=== PATIENT | female | born 1950 | race Caucasian/White ===

== ENCOUNTER 2016-11-01 20:29 | Observation (INO) | payer OTHER ==
[~2016-11-01] VITALS: Ht 175.3 cm; Wt 135.4 kg
[2016-11-01] MEDS ORDERED: OPTIRAY 350 100 ML VIAL HMH IV ONE ×2 (20:31)
[2016-11-01] MEDS ORDERED: DILAUDID 1 MG/ML AMP ONE (23:10)
[2016-11-02] VITALS (10 sets, daily range): BP systolic 110–160; RESP 16–20; TEMP 97.7–98.7; Ht 175.3 cm; Wt 135.4 kg
[2016-11-02] MEDS ORDERED: ONDANSETRON 4 MG VIAL ONE (01:23)
[2016-11-02] MEDS ORDERED: DILAUDID 1 MG/ML AMP ONE (01:24)
[2016-11-02] MEDS ORDERED: SODIUM CHLORIDE 0.9% 1,000 ML ONE (01:44)
[2016-11-02] MEDS ORDERED: ALU/MAG/SIM 30 ML UDC PO PRN (03:30)
[2016-11-02] MEDS ORDERED: DEXTROSE 50% SYRINGE 50 ML IV PRN (03:30)
[2016-11-02] MEDS ORDERED: SODIUM CHLORIDE 0.9% 1,000 ML IV SCH (03:30)
[2016-11-02] MEDS ORDERED: SALINE FLUSH 10 ML FLUSH PRN (03:30)
[2016-11-02] MEDS ORDERED: GLUCAGON 1 MG VIAL IM PRN (03:30)
[2016-11-02] MEDS: SODIUM CHLORIDE 0.9% FLUSH BAG 500 ML IV SCH (06:00)
[2016-11-02] MEDS: SALINE FLUSH 10 ML FLUSH SCH ×2 (08:00→21:50)
[2016-11-02] MEDS: FLUOXETINE 20 MG CAP PO SCH (08:37)
[2016-11-02] MEDS: METOPROLOL TART 100 MG TAB PO SCH (08:37)
[2016-11-02] MEDS: OXYBUTYNIN 5 MG TAB PO SCH (08:37)
[2016-11-02] MEDS: LEVOTHYROXINE 0.125 MG TAB PO SCH (08:37)
[2016-11-02] MEDS: MORPHINE 2 MG/ML SYR IV PRN ×3 (08:38→21:53)
[2016-11-02] MEDS: BACITRACIN OINT TOPICAL SCH (21:50)
[2016-11-03] VITALS (10 sets, daily range): BP systolic 118–153; RESP 16–20; TEMP 97.3–98
[2016-11-03] MEDS: SODIUM CHLORIDE 0.9% FLUSH BAG 500 ML IV SCH (06:00)
[2016-11-03] MEDS: LEVOTHYROXINE 0.125 MG TAB PO SCH (06:07)
[2016-11-03] MEDS: MORPHINE 2 MG/ML SYR IV PRN ×4 (06:10→22:19)
[2016-11-03] MEDS: METOPROLOL TART 100 MG TAB PO SCH (08:42)
[2016-11-03] MEDS: FLUOXETINE 20 MG CAP PO SCH (08:42)
[2016-11-03] MEDS: OXYBUTYNIN 5 MG TAB PO SCH (08:42)
[2016-11-03] MEDS: SALINE FLUSH 10 ML FLUSH SCH ×2 (08:42→21:13)
[2016-11-03] MEDS: BACITRACIN OINT TOPICAL SCH ×2 (08:43→22:09)
[2016-11-03] MEDS: ONDANSETRON 4 MG VIAL IV PRN (16:46)
[2016-11-03] MEDS ORDERED: MISSING DOSE XX ONE (21:20)
[2016-11-04] MEDS: MORPHINE 2 MG/ML SYR IV PRN ×4 (02:32→23:44)
[2016-11-04 02:52] VITALS: BP_SYST 137; RESP 20; TEMP 98.4
[2016-11-04] MEDS: SODIUM CHLORIDE 0.9% FLUSH BAG 500 ML IV SCH (06:00)
[2016-11-04] MEDS: LEVOTHYROXINE 0.125 MG TAB PO SCH (06:02)
[2016-11-04 07:19] VITALS: BP_SYST 147; RESP 20; TEMP 97.7
[2016-11-04] MEDS: METOPROLOL TART 100 MG TAB PO SCH (08:30)
[2016-11-04] MEDS: OXYBUTYNIN 5 MG TAB PO SCH (08:30)
[2016-11-04] MEDS: SALINE FLUSH 10 ML FLUSH SCH ×2 (08:30→21:08)
[2016-11-04] MEDS: BACITRACIN OINT TOPICAL SCH ×2 (08:31→22:43)
[2016-11-04] MEDS: FLUOXETINE 20 MG CAP PO SCH (08:31)
[2016-11-04 10:43] VITALS: BP_SYST 154; RESP 20; TEMP 97.6
[2016-11-04 15:08] VITALS: BP_SYST 153; RESP 20; TEMP 98.2
[2016-11-04 19:16] VITALS: BP_SYST 139; RESP 20; TEMP 97.9
[2016-11-04 22:43] VITALS: BP_SYST 143; RESP 20; TEMP 98
[2016-11-04] MEDS: ONDANSETRON 4 MG VIAL IV PRN (23:50)
[2016-11-05 03:02] VITALS: BP_SYST 175; RESP 20; TEMP 97.8
[2016-11-05] MEDS: SODIUM CHLORIDE 0.9% FLUSH BAG 500 ML IV SCH (06:00)
[2016-11-05] MEDS: LEVOTHYROXINE 0.125 MG TAB PO SCH (06:32)
[2016-11-05 07:10] VITALS: BP_SYST 158; RESP 20; TEMP 97.6
[2016-11-05] MEDS: SALINE FLUSH 10 ML FLUSH SCH ×2 (08:05→20:35)
[2016-11-05] MEDS: FLUOXETINE 20 MG CAP PO SCH (08:06)
[2016-11-05] MEDS: OXYBUTYNIN 5 MG TAB PO SCH (08:06)
[2016-11-05] MEDS: METOPROLOL TART 100 MG TAB PO SCH (08:06)
[2016-11-05] MEDS: BACITRACIN OINT TOPICAL SCH ×2 (08:07→20:34)
[2016-11-05 11:01] VITALS: BP_SYST 173; RESP 20; TEMP 97.4
[2016-11-05] MEDS: ONDANSETRON 4 MG VIAL IV PRN (12:14)
[2016-11-05 15:04] VITALS: BP_SYST 155; RESP 20; TEMP 97.9
[2016-11-05] MEDS ORDERED: HALOPERIDOL 5 MG/ML VIAL IV PRN (17:25)
[2016-11-05 19:15] VITALS: BP_SYST 176; TEMP 98.1
[2016-11-05 19:17] VITALS: RESP 18
[2016-11-06] VITALS (15 sets, daily range): BP systolic 112–188; RESP 18–20; TEMP 97.5–98.2
[2016-11-06] MEDS: SODIUM CHLORIDE 0.9% FLUSH BAG 500 ML IV SCH (06:00)
[2016-11-06] MEDS: LEVOTHYROXINE 0.125 MG TAB PO SCH (06:06)
[2016-11-06] MEDS: METOPROLOL TART 100 MG TAB PO SCH (08:07)
[2016-11-06] MEDS: OXYBUTYNIN 5 MG TAB PO SCH (08:07)
[2016-11-06] MEDS: FLUOXETINE 20 MG CAP PO SCH (08:07)
[2016-11-06] MEDS: SALINE FLUSH 10 ML FLUSH SCH ×2 (08:07→20:42)
[2016-11-06] MEDS: BACITRACIN OINT TOPICAL SCH ×2 (08:10→20:43)
[2016-11-06] MEDS: Losartan 50 MG TAB PO SCH (20:40)
[2016-11-07 02:22] VITALS: BP_SYST 154; RESP 20; TEMP 98.3
[2016-11-07] MEDS: SODIUM CHLORIDE 0.9% FLUSH BAG 500 ML IV SCH ×2 (06:00→23:02)
[2016-11-07] MEDS: LEVOTHYROXINE 0.125 MG TAB PO SCH (06:24)
[2016-11-07 07:37] VITALS: BP_SYST 174; RESP 20; TEMP 97.9
[2016-11-07] MEDS: Losartan 50 MG TAB PO SCH (08:54)
[2016-11-07] MEDS: Furosemide 80 MG TAB PO SCH (08:55)
[2016-11-07] MEDS: METOPROLOL TART 100 MG TAB PO SCH (08:55)
[2016-11-07] MEDS: FLUOXETINE 20 MG CAP PO SCH (08:55)
[2016-11-07] MEDS: OXYBUTYNIN 5 MG TAB PO SCH (08:55)
[2016-11-07] MEDS: KCL CR 20 MEQ TAB PO SCH (08:55)
[2016-11-07] MEDS: BACITRACIN OINT TOPICAL SCH ×2 (08:56→21:16)
[2016-11-07] MEDS: SALINE FLUSH 10 ML FLUSH SCH ×2 (08:56→21:13)
[2016-11-07 11:35] VITALS: BP_SYST 163; RESP 22; TEMP 98
[2016-11-07] MEDS: GLIMEPIRIDE 1 MG TAB PO SCH (11:58)
[2016-11-07 16:32] VITALS: BP_SYST 158; RESP 20; TEMP 97.9
[2016-11-07] MEDS: MORPHINE 2 MG/ML SYR IV PRN ×2 (16:42→21:13)
[2016-11-07 19:52] VITALS: BP_SYST 181; RESP 20; TEMP 97.6
[2016-11-07] MEDS: TRAZODONE 100 MG TAB PO SCH (21:14)
[2016-11-07 23:41] VITALS: BP_SYST 160; RESP 20; TEMP 97.3
[2016-11-08] VITALS (8 sets, daily range): BP systolic 120–156; RESP 20–22; TEMP 97.8–98.5
[2016-11-08] MEDS: LEVOTHYROXINE 0.125 MG TAB PO SCH (06:12)
[2016-11-08] MEDS: METOPROLOL TART 100 MG TAB PO SCH (09:21)
[2016-11-08] MEDS: GLIMEPIRIDE 1 MG TAB PO SCH (09:22)
[2016-11-08] MEDS: FLUOXETINE 20 MG CAP PO SCH (09:22)
[2016-11-08] MEDS: KCL CR 20 MEQ TAB PO SCH (09:22)
[2016-11-08] MEDS: Losartan 50 MG TAB PO SCH (09:22)
[2016-11-08] MEDS: OXYBUTYNIN 5 MG TAB PO SCH (09:22)
[2016-11-08] MEDS: Furosemide 80 MG TAB PO SCH (09:22)
[2016-11-08] MEDS: SALINE FLUSH 10 ML FLUSH SCH ×2 (09:23→20:23)
[2016-11-08] MEDS: BACITRACIN OINT TOPICAL SCH ×2 (09:26→20:24)
[2016-11-08] MEDS: TRAZODONE 100 MG TAB PO SCH (20:21)
[2016-11-08] MEDS: SODIUM CHLORIDE 0.9% FLUSH BAG 500 ML IV SCH (20:25)
[2016-11-09] VITALS (8 sets, daily range): BP systolic 144–156; RESP 18–20; TEMP 97.4–98.5
[2016-11-09] MEDS: LEVOTHYROXINE 0.125 MG TAB PO SCH (06:01)
[2016-11-09] MEDS: SALINE FLUSH 10 ML FLUSH SCH ×2 (08:13→20:00)
[2016-11-09] MEDS: Losartan 50 MG TAB PO SCH (08:14)
[2016-11-09] MEDS: KCL CR 20 MEQ TAB PO SCH (08:14)
[2016-11-09] MEDS: GLIMEPIRIDE 1 MG TAB PO SCH (08:14)
[2016-11-09] MEDS: FLUOXETINE 20 MG CAP PO SCH (08:14)
[2016-11-09] MEDS: OXYBUTYNIN 5 MG TAB PO SCH (08:14)
[2016-11-09] MEDS: Furosemide 80 MG TAB PO SCH (08:14)
[2016-11-09] MEDS: METOPROLOL TART 100 MG TAB PO SCH (08:14)
[2016-11-09] MEDS: BACITRACIN OINT TOPICAL SCH (08:17)
[2016-11-09] MEDS: TRAZODONE 100 MG TAB PO SCH (20:01)
[2016-11-10] MEDS: BACITRACIN OINT TOPICAL SCH ×3 (01:53→16:35)
[2016-11-10 03:08] VITALS: BP_SYST 155; RESP 20; TEMP 98.6
[2016-11-10] MEDS: SODIUM CHLORIDE 0.9% FLUSH BAG 500 ML IV SCH (05:53)
[2016-11-10] MEDS: LEVOTHYROXINE 0.125 MG TAB PO SCH (06:19)
[2016-11-10 07:44] VITALS: BP_SYST 136; RESP 20; TEMP 98.5
[2016-11-10] MEDS ORDERED: MISSING DOSE XX ONE ×3 (07:50→08:45)
[2016-11-10] MEDS: SALINE FLUSH 10 ML FLUSH SCH (08:10)
[2016-11-10] MEDS: OXYBUTYNIN 5 MG TAB PO SCH (08:11)
[2016-11-10] MEDS: FLUOXETINE 20 MG CAP PO SCH (08:11)
[2016-11-10] MEDS: Furosemide 80 MG TAB PO SCH (08:14)
[2016-11-10] MEDS: KCL CR 20 MEQ TAB PO SCH (08:14)
[2016-11-10] MEDS: METOPROLOL TART 100 MG TAB PO SCH (08:14)
[2016-11-10] MEDS ORDERED: QUEtiapine 25 MG TAB PO SCH (09:00)
[2016-11-10] MEDS ORDERED: GLIMEPIRIDE 2 MG TAB PO SCH (09:00)
[2016-11-10] MEDS: Losartan 50 MG TAB PO SCH (09:19)
[2016-11-10 11:42] VITALS: BP_SYST 136; RESP 20; TEMP 97.7
[2016-11-10 15:52] VITALS: BP_SYST 134; RESP 20; TEMP 97.4
[2016-11-10 16:41] VITALS: BP_SYST 102; RESP 20; TEMP 97.5
[2016-11-10 16:50] VITALS: BP_SYST 102; RESP 20; TEMP 97.5
== END 2016-11-10 16:35 | disposition home health service (06) ==
LOC: ENRESERVTM → CANRESERV → ENRESERVDT → ER 20:29 → ENPENDDIS 20:30 → EMR 20:30 → 3NT 11-02 04:55 → OBSVTOIN 11-05 16:54 → DELPENDDIS 11-05 16:54 → INTOOBSV 11-05 16:54 → ENPENDDIS 11-05 16:54
PROVIDERS: ADMIT Internal Medicine; ATTEND Internal Medicine
DX: W18.39XA Other fall on same level, initial encounter (principal); Y93.89 Activity, other specified; Y92.89 Other specified places as the place of occurrence of the external cause; R79.1 Abnormal coagulation profile; E86.1 Hypovolemia; S30.0XXD Contusion of lower back and pelvis, subsequent encounter; E11.9 Type 2 diabetes mellitus without complications; I48.2 Chronic atrial fibrillation; Z79.01 Long term (current) use of anticoagulants; I82.409 Acute embolism and thrombosis of unspecified deep veins of unspecified lower extremity; Z95.1 Presence of aortocoronary bypass graft; Z90.3 Acquired absence of stomach [part of]; K21.9 Gastro-esophageal reflux disease without esophagitis; I10 Essential (primary) hypertension; J45.909 Unspecified asthma, uncomplicated; Z79.82 Long term (current) use of aspirin; Z79.899 Other long term (current) drug therapy
CPT/HCPCS: 36415; 71101; 71260; 74177; 80048; 80053; 81003; 82553; 82947; 84484; 85025; 85379; 87040; 93005; 96361; 96374; 96375; 96376; 97110; 97161; 97164; 97165; 99285; G0378; G8978; G8979; G8980; G8987; G8988; G8989; J1170; J2405; Q9967; 99219; 99232; 99233